=== PATIENT | female | born 1980 | race Caucasian/White ===

== ENCOUNTER 2016-11-07 15:10 | Inpatient (IN) | payer OTHER ==
[~2016-11-07] VITALS: Ht 162.6 cm; Wt 70.9 kg
[2016-11-11] MEDS ORDERED: OXYTOCIN 30U/ 0.9% NaCL 500ML 500 ML IV ONE (22:29)
[2016-11-11] MEDS: D5%-LACTATED RINGERS 1,000 ML IV SCH (22:29)
[2016-11-11] MEDS ORDERED: ONDANSETRON 2MG/ML, 2ML IVPush PRN (22:30)
[2016-11-11] MEDS ORDERED: FENTANYL PF 100 MCG/2ML IVPush PRN (22:30)
[2016-11-11] MEDS ORDERED: FENTANYL PF 100 MCG/2ML IV PRN (22:30)
[2016-11-11] MEDS: LACTATED RINGERS 1,000 ML IV SCH (22:50)
[2016-11-11] MEDS ORDERED: NEWBORN KIT ONE (23:11)
[2016-11-11] MEDS ORDERED: OXYTOCIN 30U/ 0.9% NaCL 500ML 500 ML ONE (23:11)
[2016-11-12] MEDS ORDERED: FENTANYL PF 100 MCG/2ML ONE (02:34)
[2016-11-12] MEDS: OXYTOCIN 30U/ 0.9% NaCL 500ML 500 ML IV SCH ×2 (05:56→15:56)
[2016-11-12] MEDS ORDERED: DOCUSATE 100 MG CAPSULE PO PRN (06:00)
[2016-11-12] MEDS ORDERED: ONDANSETRON 2MG/ML, 2ML IV PRN (06:00)
[2016-11-12] MEDS ORDERED: BISACODYL 10 MG SUPP PR PRN (06:00)
[2016-11-12] MEDS ORDERED: MAGNESIUM HYDROXIDE 8%, 30ML UDC PO PRN (06:00)
[2016-11-12] MEDS ORDERED: METHYLERGONOVINE 0.2 MG/ML IM PRN (06:00)
[2016-11-12] MEDS ORDERED: LEVOTHYROXINE 112 MCG TABLET PO SCH (06:00)
[2016-11-12] MEDS ORDERED: OXYTOCIN 10 UNITS/ML, 1ML IM PRN (06:00)
[2016-11-12] MEDS ORDERED: MISOPROSTOL 200 MCG TABLET PR PRN (06:00)
[2016-11-12] MEDS ORDERED: METOCLOPRAMIDE 5 MG/ML, 2ML IV PRN (06:00)
[2016-11-12] MEDS ORDERED: CARBOPROST TROMETHAMINE 250 MCG/ML, 1ML IM PRN (06:00)
[2016-11-12] MEDS ORDERED: RHOGAM FROM BLOOD BANK 1 NOTE EA IM/IV ONE (06:00)
[2016-11-12] MEDS ORDERED: OXYcodone/APAP 5/325MG TABLET PO PRN ×2 (06:00)
[2016-11-12] MEDS ORDERED: GLYCERIN ADULT SUPP PR PRN (06:00)
[2016-11-12] MEDS ORDERED: DIPH,PERTUSS(ACELL),TET VAC/PF NC IM-VACC PRN (06:00)
[2016-11-12] MEDS ORDERED: MEASLES,MUMPS&RUBELLA VACC/PF 0.5 ML SQ PRN (06:00)
[2016-11-12] MEDS ORDERED: CALCIUM CARBONATE 500 MG TAB.CHEW PO PRN (06:00)
[2016-11-12] MEDS ORDERED: ACETAMINOPHEN 325 MG TABLET PO PRN ×2 (06:00)
[2016-11-12] MEDS: D5%-LACTATED RINGERS 1,000 ML IV SCH ×2 (06:29→14:29)
[2016-11-12] MEDS: LACTATED RINGERS 1,000 ML IV SCH ×2 (06:29→14:29)
[2016-11-12] MEDS ORDERED: IBUPROFEN 600 MG TABLET ONE (07:26)
[2016-11-12] MEDS: IBUPROFEN 600 MG TABLET PO PRN ×3 (07:31→22:20)
[2016-11-12 08:30] VITALS: BP 116/78
[2016-11-12] MEDS ORDERED: PRENATAL VIT/IRON/FA 1 EACH TABLET PO SCH (09:00)
[2016-11-12 16:00] VITALS: BP 110/62
[2016-11-12 22:00] VITALS: BP 115/79
[2016-11-13 07:05] VITALS: BP 113/73
[2016-11-13] MEDS: IBUPROFEN 600 MG TABLET PO PRN (08:33)
[2016-11-13] MEDS ORDERED: IBUP-1222 PO (10:58)
== END 2016-11-13 13:00 | disposition home or self-care (01) | DRG 775 ==
LOC: LDIP 11-11 22:21 → 2NW 11-12 08:29
PROVIDERS: ADMIT Obstetrics & Gynecology; ATTEND Obstetrics & Gynecology
PROC: 10E0XZZ Delivery of Products of Conception, External Approach (ICD-10-PCS; principal; 2016-11-12)
PROC: 0KQM0ZZ Repair Perineum Muscle, Open Approach (ICD-10-PCS; 2016-11-12)
DX: O76 Abnormality in fetal heart rate and rhythm complicating labor and delivery (principal); O70.1 Second degree perineal laceration during delivery; O99.284 Endocrine, nutritional and metabolic diseases complicating childbirth; E89.0 Postprocedural hypothyroidism; O35.8XX0 Maternal care for other (suspected) fetal abnormality and damage, not applicable or unspecified; Z3A.40 40 weeks gestation of pregnancy; Z37.0 Single live birth; Z85.850 Personal history of malignant neoplasm of thyroid
CPT/HCPCS: 36415; 85025; 86900; J3010; J2590; J7120